=== PATIENT | female | born 1950 | race Caucasian/White ===

== ENCOUNTER → 2016-11-01 | Outpatient (CLI) | payer OTHER ==
[~2016-11-01] MED LIST: ACET-1256 PO; ATOR10TA88 PO; AZIT500T PO; CHOL100010 PO; CLB200 PO; CYAN10004 PO; IBUP-1428 PO; IPRA1AER2 INH; LEVO88TA PO; OMEG10007 PO; ONDA4TAB10 SL; SERT-234 PO; VITA100C4 PO
== END | disposition home or self-care (01) ==
LOC: C.PATHSPEC 17:22
PROVIDERS: ATTEND Orthopaedic Surgery
DX: M16.11 Unilateral primary osteoarthritis, right hip (principal); M65.9 Synovitis and tenosynovitis, unspecified